=== PATIENT | female | born 1980 | race Caucasian/White ===

== ENCOUNTER 2017-07-13 22:16 | Emergency (ER) | payer OTHER ==
[~2017-07-13] VITALS: Ht 175.3 cm; Wt 59.7 kg
[2017-07-13 22:24] VITALS: BP 124/75; PULSE 86; RESP 18; TEMP 98.5; O2SAT 97
[2017-07-14 01:15] VITALS: BP 129/72; PULSE 87; RESP 18; O2SAT 97
[2017-07-14] MEDS ORDERED: BUTA1CAP PO (01:17)
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
== END 2017-07-14 01:27 | disposition home or self-care (01) ==
LOC: PHED 22:16
DX: M79.9 Soft tissue disorder, unspecified (principal); G44.309 Post-traumatic headache, unspecified, not intractable; F17.200 Nicotine dependence, unspecified, uncomplicated; V89.2XXA Person injured in unspecified motor-vehicle accident, traffic, initial encounter
CPT/HCPCS: 99283